=== PATIENT | female | born 1980 | race Caucasian/White ===

== ENCOUNTER → 2022-09-23 09:38 | Outpatient (CLI) | payer OTHER, SELFPAY ==
--- NOTE | 2022-09-23 | DI.US.S_ITS ---
PROCEDURE: US PELVIC COMPLETE INDICATIONS: DUB TECHNIQUE: Real-time scanning was performed of the pelvic organs, with image documentation. Additional endovaginal scanning was necessary due to incomplete visualization of the adnexal and endometrial structures by transabdominal scanning. COMPARISON: None. FINDINGS: Uterus: Uterus is anteverted and enlarged in size at 9.9 x 5.0 x 6.9 cm. The myometrium is homogeneous. No discrete uterine fibroids. The endometrium measures 17.9 mm combined thickness. No gross no endometrial mass or fluid is seen. Ovaries: The right ovary measures 3.5 x 3.1 x 3.4 cm, with a calculated ovarian volume of 19.3 cc. The left ovary is not well visualized. Simple cyst is seen in right ovary measures 2.6 x 2.7 x 2.7 cm in size. Simple cyst is also noted in left adnexa measures 5.9 x 6.1 x 5.1 cm in size. Less than 12 follicles can be seen in right ovary. No adnexal masses are seen. Other: No pathologic free abdominal or pelvic fluid. IMPRESSION: 1. Thickened endometrium which could represent endometrial hyperplasia suggest clinical correlation. No gross endometrial mass or fluid. 2. No discrete uterine fibroids. 3. Simple cysts seen in right ovary. No solid appearing ovarian lesion. Simple cyst is noted in left adnexa. Left ovary is not definitively seen. No adnexal mass. We strive to produce accurate, complete, and clear reports of imaging services. To assist us in improving patient care, this report was composed using standard report templates and voice recognition software. Therefore, it may contain abnormal punctuation, insertions and/or omissions. Occasional wrong-word or sound-alike substitutions may occur. Though we review the report and make efforts to correct it, we do recommend that the report be read carefully in proper context to recognize any text inaccuracies. Dictated by: Gabino Pearce M.D. on 09/23/2022 at 15:25 Approved by: Gabino Pearce M.D. on 09/23/2022 at 15:30
== END ==
PROVIDERS: Referring Provider Physician Assistant; Visit Provider Physician Assistant
DX: N93.9 Abnormal uterine and vaginal bleeding, unspecified (principal); R93.89 Abnormal findings on diagnostic imaging of other specified body structures; N83.291 Other ovarian cyst, right side; N83.292 Other ovarian cyst, left side
CPT/HCPCS: 76830; 76856

== ENCOUNTER → 2023-07-06 09:57 | Outpatient (CLI) | payer OTHER, SELFPAY ==
--- NOTE | 2023-07-06 09:59 | DI.US.S_ITS ---
LIMITED ULTRASOUND OF RIGHT BREAST AND AXILLA: 07/06/2023 CLINICAL: Patient returns for short term follow-up of a probably benign mass in the right breast. Follow up from addtional views. Comparison is made to exams dated: 07/06/2023 mammogram - [facility], 11/29/2020 mammogram, 05/07/2020 mammogram, and 04/24/2020 mammogram - [facility]. Color flow ultrasound of the right breast 10 o'clock, and axilla regions was performed. Thomason scale images of the real-time examination were reviewed. There is a benign 1.4 cm x 1.8 cm x 1.3 cm oval cyst with a smooth internal wall in the right breast at 10 o'clock posterior depth 9 cm from the nipple. This oval cyst is anechoic with posterior acoustic enhancement. This correlates with mammography findings. No significant abnormalities were seen sonographically in the right axilla. IMPRESSION: BENIGN There is no sonographic evidence of malignancy. The 1.4 cm x 1.8 cm x 1.3 cm oval cyst in the right breast is consistent with a simple cyst and is benign. Return to annual mammogram screening schedule is recommended. This exam was interpreted at Station ID: [id number]. Electronically Signed By: Wiliam zapata/[email or web address]:07/06/2023 16:44:08 letter sent: Normal Exam Ultrasound BI-RADS: 2 Benign
--- NOTE | 2023-07-06 09:59 | DI.MG.S_ITS ---
UNILATERAL RIGHT DIGITAL DIAGNOSTIC MAMMOGRAM 3D/2D WITH ADDITIONAL VIEWS: 07/06/2023 CLINICAL: Additional evaluation requested from prior study. Comparison is made to exams dated: 11/29/2020 mammogram, 05/07/2020 mammogram, 04/24/2020 mammogram, and 04/07/2019 mammogram - [facility]. The right breast is heterogeneously dense, which may obscure small masses (category c / 51-75% glandular tissue). There is an oval mass with a circumscribed margin in the right breast at 10 o'clock posterior depth. This is seen in additional views. No other significant masses or calcifications are seen in the breast. IMPRESSION: INCOMPLETE: NEEDS ADDITIONAL IMAGING EVALUATION The oval mass in the right breast is indeterminate. An ultrasound is recommended. Based on the Tyrer Cuzick model (a risk assessment model) the patient's lifetime risk is 11.4% and her 10 year risk is 1.9%. According to the ACR, ACS, and NCCN guidelines, an annual breast MRI exam along with mammogram is recommended if the patient's lifetime risk is 20% or greater. This exam was interpreted at Station ID: [id number]. NOTE: For mammograms, a report in lay terms will be sent to the patient. Approximately 15% of breast malignancies will not be visualized mammographically. In the management of a palpable breast mass, a negative mammogram must not discourage biopsy of a clinically suspicious lesion. Electronically Signed By: Wiliam zapata/[email or web address]:07/06/2023 16:39:37 ACR BI-RADS Category 0: Incomplete [id number]
== END ==
PROVIDERS: PCP Nurse Practitioner Family; Referring Provider Nurse Practitioner Family; Visit Provider Nurse Practitioner Family
DX: R92.8 Other abnormal and inconclusive findings on diagnostic imaging of breast (principal); R92.331 Mammographic heterogeneous density, right breast; N60.01 Solitary cyst of right breast
CPT/HCPCS: 76642; 77065; G0279